=== PATIENT | male | born 1995 | race Caucasian/White ===

== ENCOUNTER 2018-11-06 08:54 | Emergency (ER) | payer OTHER ==
[2018-11-06] MEDS ORDERED: ACETAMINOPHEN 325 MG TAB PO ONE (09:30)
[2018-11-06] MEDS ORDERED: ONDANSETRON 4 MG ORAL DISINTEGRATING TAB (Q0162 PER 1MG) PO ONE (09:30)
--- NOTE | 2018-11-06 09:55 | REP ---
CT HEAD WITHOUT CONTRAST: HISTORY: Right frontal injury. There is no intraparenchymal hemorrhage, mass or midline shift. The ventricular system is normal in appearance. There is no extracerebral collection. There is no fracture. The visualized sinuses are clear. IMPRESSION: There is no intracranial lesion. Electronically Signed by Baldemar Espinoza MD 11/06/2018 10:00 A
[2018-11-06] MEDS ORDERED: ONDA4TAB6 PO (10:23)
[2018-11-06 10:28] VITALS: BP 128/71
== END 2018-11-06 10:31 | disposition home or self-care (01) ==
LOC: EDBD 08:54 → M ED 08:54
DX: S06.0X0A Concussion without loss of consciousness, initial encounter (principal); W22.8XXA Striking against or struck by other objects, initial encounter; Y92.89 Other specified places as the place of occurrence of the external cause
CPT/HCPCS: 70450; 99284; Q0162